=== PATIENT | male | born 1965 | race Caucasian/White ===

== ENCOUNTER 2020-11-04 05:39 | Outpatient (CLI) | payer BC ==
[~2020-11-04] VITALS: Ht 177.8 cm; Wt 123.3 kg
[~2020-11-04 05:39] MED LIST: ACET325T49; AMLO10TA4; GUAI-509; HCT25T; LEVO750T6; LISI20TA; LSNP10T; MTC10T; VALS80TA; ZEGERID; ZEGRID
[2020-11-04] MEDS ORDERED: METF500S5 PO (13:12)
[2020-11-04] MEDS ORDERED: ATOR10TA66 PO (13:12)
[2020-11-04] MEDS ORDERED: TRAZ150T72 PO (13:12)
[2020-11-04] MEDS ORDERED: LISI20TA26 PO (13:12)
== END 2020-11-04 13:56 | disposition home or self-care (01) ==
LOC: PREOP 05:39
PROVIDERS: ATTEND Surgery
DX: Z01.818 Encounter for other preprocedural examination (principal)

== ENCOUNTER → 2020-11-11 | Day surgery (SDC) | payer BC ==
[~2020-11-11] VITALS: Ht 177 cm; Wt 123.0 kg
[~2020-11-11] MED LIST changes: +ATOR10TA66 PO; +LACTATED RINGERS 1,000 ML IV STA; +LISI20TA26 PO; +METF500S5 PO; +MIDAZOLAM 2 MG/2 ML (VERSED) VIAL ONE; +PROPOFOL INJECTION 50 ML IV ONE; +TRAZ150T72 PO
[2020-11-11 11:45] VITALS: BP 142/83
[2020-11-11 13:00] VITALS: BP 119/57
--- NOTE | 2020-11-11 13:00 | Progress Note-Post Operative ---
Post-Operative Progess Note Surgeon (s)/Painter Shipyard (s) Surgeon PADMINI WIN DO Pain[employer] Shipyard: na Pre-Operative Diagnosis screening colonoscopy Post-Operative Diagnosis colon polyps Procedure & Operative Findings Date of Procedure 11/11/20 Procedure Performed/Findings colonoscopy c snare polypectomy x 2 and fulguration of polyps x 2 Anesthesia Type per spray painting machine operator Estimated Blood Loss Estimated blood loss (mL): none Specimens/Packing Specimens Removed colon polyps PADMINI WIN DO Nov 11, 2020 13:00
--- NOTE | 2020-11-11 13:02 | Discharge Inst-Simple/Standard ---
Discharge Inst-Standard Patient Instructions/Follow Up Plan of Care/Instructions/FU: 2 weeks Nusrat Activity as Tolerated: Yes Discharge Diet: Regular Diet PADMINI WIN DO Nov 11, 2020 13:02
[2020-11-11 13:05] VITALS: BP 96/52
[2020-11-11 13:09] VITALS: BP 108/57
[2020-11-11 13:10] VITALS: BP_SYST 103; BP_SYST 125; BP_DIAS 59; BP_DIAS 92
[2020-11-11 13:35] VITALS: BP 125/92
--- NOTE | 2020-11-11 14:17 | Anesthesia-General Post-Op ---
MAC Patient Condition Mental Status/LOC: Same as Preop Cardiovascular: Satisfactory Nausea/Vomiting: Absent Respiratory: Satisfactory Pain: Controlled Complications: Absent Post Op Complications Complications None Follow Up Care/Instructions Patient Instructions None needed. Anesthesiology Discharge Order Discharge Order Patient is doing well, no complaints, stable vital signs, no apparent adverse anesthesia problems. No complications reported per nursing. GEMMA PINA [employer] Nov 11, 2020 14:17
--- NOTE | 2020-11-11 15:49 | OPERATIVE REPORT ---
DATE OF SERVICE: 11/11/2020 PREOPERATIVE DIAGNOSIS: Screening colonoscopy. POSTOPERATIVE DIAGNOSIS: Colon polyps. PROCEDURE: Colonoscopy with snare polypectomy x2 and fulguration of polyps x2. SURGEON: Padmini Silverio DO ANESTHESIA: Per VALUE ENGINEER. ESTIMATED BLOOD LOSS: None. COMPLICATIONS: None. INDICATIONS: The patient is a 55-year-old male needing screening colonoscopy. He understands risks and benefits of procedure and wished to proceed with procedure. Consent was signed in the chart. DESCRIPTION OF PROCEDURE: The patient was taken to the endoscopy suite, placed in left lateral recumbent position. Timeout was performed. Digital rectal exam was performed. No palpable polyps, masses or ulcerations. Scope was inserted in the rectum, advanced all the way to cecum with minimal difficulty. Very tiny polyp in the cecum, which was visualized. The biopsy forceps were advanced, but unable to be advanced through the channel. Therefore, snare was able to be advanced all the way through the channel of the scope. A small polyp was fulgurated. Scope was then slowly retracted back into the ascending colon, a small polyp was present, which snare polypectomy was performed. This was obtained for specimen. There was a second polyp right next to it, which this polyp right next to the ascending colon polyp was fulgurated. Scope was then continuously slowly retracted back through the remainder of the ascending, and transverse colon without any polyps, masses or ulcerations. In the descending colon, another polyp was present, was small, which snare polypectomy was performed. This was obtained for specimen. Scope was then continuously slowly retracted back. No other polyps, masses or ulcerations within the remainder of the descending, sigmoid and rectum. Scope was retroflexed noting no other pathology in the rectum. Scope was returned to its normal position, slowly withdrawn until completely removed. The patient tolerated procedure well without any complications, taken to recovery room in stable condition. RECOMMENDATIONS: The patient will need repeat colonoscopy in 3 years. Any issues before that be seen at that time. Job ID: [id number] DocumentID: [id number] Dictated Date: 11/11/2020 13:04:39 Video Production Coordinator Date: 11/11/2020 15:47:43 Dictated By: PADMINI SILVERIO DO
== END ==
LOC: ENDO 11:31
PROVIDERS: ATTEND Surgery
DX: Z12.11 Encounter for screening for malignant neoplasm of colon (principal); D12.2 Benign neoplasm of ascending colon; D12.4 Benign neoplasm of descending colon; E11.9 Type 2 diabetes mellitus without complications; I10 Essential (primary) hypertension; E66.01 Morbid (severe) obesity due to excess calories; G47.33 Obstructive sleep apnea (adult) (pediatric); Z87.442 Personal history of urinary calculi; Z79.2 Long term (current) use of antibiotics; Z79.899 Other long term (current) drug therapy; Z79.84 Long term (current) use of oral hypoglycemic drugs; Z68.41 Body mass index [BMI] 40.0-44.9, adult
CPT/HCPCS: 88305

== ENCOUNTER 2021-08-31 08:26 | Outpatient (CLI) | payer BC ==
[~2021-08-31] VITALS: Ht 175.3 cm; Wt 123.6 kg
[~2021-08-31 08:26] MED LIST changes: -LACTATED RINGERS 1,000 ML IV STA; -MIDAZOLAM 2 MG/2 ML (VERSED) VIAL ONE; -PROPOFOL INJECTION 50 ML IV ONE
== END 2021-08-31 11:38 ==
LOC: PREOP 08:26
PROVIDERS: ATTEND Otolaryngology Otolaryngology/Facial Plastic Surgery
DX: Z01.818 Encounter for other preprocedural examination (principal)

== ENCOUNTER 2021-09-03 06:59 | Day surgery (SDC) | payer BC ==
[2021-09-03] VITALS (9 sets, daily range): BP systolic 101–139; BP diastolic 57–91
[~2021-09-03] VITALS: Ht 175 cm; Wt 123.6 kg
[2021-09-03] MEDS: LACTATED RINGERS 1,000 ML IV PRN ×3 (07:52→09:45)
[2021-09-03 07:54] LABS: BASOPHILS % (AUTO) 1 % (0-10); EOSINOPHILS # (AUTO) 0.4 10^3/uL (0.0-0.3); EOSINOPHILS % (AUTO) 5 % (0-10); HEMATOCRIT 43 % (40-54); HEMOGLOBIN 14.1 g/dL (13.3-17.7); LYMPHOCYTES # (AUTO) 1.6 10^3/uL (1.0-4.0); LYMPHOCYTES % (AUTO) 22 % (12-44); MEAN CORPUSCULAR HEMOGLOBIN 30 pg (25-34); MEAN CORPUSCULAR HGB CONC 33 g/dL (32-36); MEAN CORPUSCULAR VOLUME 90 fL (80-99); MEAN PLATELET VOLUME 9.7 fL (9.0-12.2); MONOCYTES # (AUTO) 0.9 10^3/uL (0.0-1.0); MONOCYTES % (AUTO) 12 % (0-12); NEUTROPHILS # (AUTO) 4.4 10^3/uL (1.8-7.8); NEUTROPHILS % (AUTO) 60 % (42-75); PLATELET COUNT 270 10^3/uL (130-400); WHITE BLOOD COUNT 7.4 10^3/uL (4.3-11.0)
[2021-09-03 08:07] LABS: POTASSIUM 4.1 MMOL/L (3.6-5.0)
[2021-09-03 08:08] LABS: CALCIUM 8.8 MG/DL (8.5-10.1)
[2021-09-03 08:12] LABS: CREATININE SERUM 0.7 MG/DL (0.60-1.30)
[2021-09-03] MEDS ORDERED: LIDOCAINE/EPI 2% 1:100,00 (XYLOCAINE) 20 ML VIAL ONE (08:51)
[2021-09-03] MEDS ORDERED: MIDAZOLAM 2 MG/2 ML (VERSED) VIAL ONE (09:03)
[2021-09-03] MEDS ORDERED: proPOfol 200 MG/20 ML (DIPRIVAN) VIAL IV ONE (09:03)
[2021-09-03] MEDS ORDERED: fentaNYL INJ 100 MCG/2 ML AMP ONE (09:03)
[2021-09-03] MEDS ORDERED: ONDANSETRON 4 MG/2 ML (SDV) Z0FRAN ONE (09:03)
[2021-09-03] MEDS ORDERED: MUPIROCIN 2% OINT 22 GM (BACTROBAN) TUBE ONE (09:03)
[2021-09-03] MEDS ORDERED: LIDOCAINE PF 2% 5 ML (XYLOCAINE) VIAL ONE (09:03)
--- NOTE | 2021-09-03 09:44 | Progress Note-Post Operative ---
Post-Operative Progess Note Surgeon (s)/Grounds Restoration Specialist (s) Surgeon LARA HARDING MD Grounds Restoration Specialist n/a Pre-Operative Diagnosis Left Nasal Alar Lesion Post-Operative Diagnosis same Post-Op Procedure Note Date of Procedure: Sep 03, 2021 Name of Procedure Performed: Excision of Left Nasal Alar Lesion with INtermediate Repair Description & Findings Description and Findings: n/a Anesthesia Type lma Estimated Blood Loss minimal Packing none. Specimen(s) collected/removed left nasal alar mass LARA HARDING MD Sep 03, 2021 09:44
--- NOTE | 2021-09-03 09:44 | Progress Note-Pre Operative ---
Pre-Operative Progress Note H&P Reviewed The H&P was reviewed, patient examined and no changes noted. Date Seen by Provider: Sep 03, 2021 Time Seen by Provider: 09:00 Date H&P Reviewed: Sep 03, 2021 Time H&P Reviewed: 09:00 Pre-Operative Diagnosis: Left Nasal Alar Lesion LARA HARDING MD Sep 03, 2021 09:44
[2021-09-03] MEDS ORDERED: HYDROcodone/APAP 5 MG/325 MG (LORTAB) TAB PO PRN (09:45)
[2021-09-03] MEDS ORDERED: ACETAMINOPHEN 325 MG TABLET PO PRN (09:45)
--- NOTE | 2021-09-03 09:46 | Anesthesia-General Post-Op ---
General Patient Condition Mental Status/LOC: Same as Preop Cardiovascular: Satisfactory Nausea/Vomiting: Absent Respiratory: Satisfactory Pain: Controlled Complications: Absent Post Op Complications Complications None Follow Up Care/Instructions Patient Instructions None needed. Anesthesia/Patient Condition Patient Condition Patient is doing well, no complaints, stable vital signs, no apparent adverse anesthesia problems. No complications reported per nursing. GILDA FARIA CRNA Sep 03, 2021 09:46
[2021-09-03] MEDS ORDERED: MEPERIDINE (DEMEROL) INJ 50 MG/ML IVP ONE (10:00)
[2021-09-03] MEDS ORDERED: morphine INJ 10 MG/ML 1ML (SYR OR VIAL) IVP ONE (10:00)
[2021-09-03] MEDS ORDERED: ONDANSETRON 4 MG/2 ML (SDV) Z0FRAN IVP PRN (10:00)
[2021-09-03] MEDS ORDERED: ACHD5005 PO (10:23)
[2021-09-03] MEDS ORDERED: DOXY-311 PO (10:23)
== END 2021-09-03 11:25 | disposition home or self-care (01) ==
LOC: SDC 06:59
PROVIDERS: ATTEND Otolaryngology Otolaryngology/Facial Plastic Surgery
DX: D18.01 Hemangioma of skin and subcutaneous tissue (principal); J34.0 Abscess, furuncle and carbuncle of nose
CPT/HCPCS: 36415; 80048; 85025; 87081

== ENCOUNTER 2021-10-09 06:30 | Outpatient (CLI) | payer BC ==
[~2021-10-09 06:30] MED LIST changes: +ACHD5005 PO; +DOXY-311 PO
== END 2021-10-12 16:16 ==
LOC: PREOP 06:30
PROVIDERS: ATTEND Otolaryngology Otolaryngology/Facial Plastic Surgery
DX: Z01.818 Encounter for other preprocedural examination (principal); L98.0 Pyogenic granuloma

== ENCOUNTER 2021-10-16 08:56 | Day surgery (SDC) | payer BC ==
[~2021-10-16] VITALS: Ht 177.8 cm; Wt 123.6 kg
[2021-10-16] VITALS (11 sets, daily range): BP systolic 119–145; BP diastolic 71–93
[2021-10-16] MEDS ORDERED: MUPIROCIN 2% OINT 22 GM (BACTROBAN) TUBE ONE (09:23)
[2021-10-16] MEDS ORDERED: BSS 15 ML ONE (09:23)
[2021-10-16] MEDS ORDERED: proPOfol 200 MG/20 ML (DIPRIVAN) VIAL IV ONE ×2 (09:28→10:52)
[2021-10-16] MEDS ORDERED: ONDANSETRON 4 MG/2 ML (SDV) Z0FRAN ONE (09:28)
[2021-10-16] MEDS ORDERED: LIDOCAINE PF 2% 5 ML (XYLOCAINE) VIAL ONE (09:28)
[2021-10-16] MEDS ORDERED: LIDOCAINE/EPI 2% 1:200,00 (XYLOCAINE) 20 ML VIAL ONE (09:29)
[2021-10-16] MEDS: LACTATED RINGERS 1,000 ML IV PRN ×2 (09:30→10:30)
[2021-10-16] MEDS ORDERED: fentaNYL INJ 100 MCG/2 ML AMP ONE (09:30)
[2021-10-16] MEDS ORDERED: MIDAZOLAM 2 MG/2 ML (VERSED) VIAL ONE (09:56)
--- NOTE | 2021-10-16 09:56 | Progress Note-Pre Operative ---
Pre-Operative Progress Note H&P Reviewed The H&P was reviewed, patient examined and no changes noted. Date Seen by Provider: October 16, 2021 Time Seen by Provider: : Date H&P Reviewed: October 16, 2021 Time H&P Reviewed: : Pre-Operative Diagnosis: Recurent Pyogenic Granuloma left nasal AlaLARA Baeza MD October 16, 2021 09:56
--- NOTE | 2021-10-16 10:28 | Progress Note-Post Operative ---
Post-Operative Progess Note Surgeon (s)/Three Dimensional Art Instructor (s) Surgeon LARA HARDING MD Three Dimensional Art Instructor n/a Pre-Operative Diagnosis Recurent Pyogenic Granuloma left nasal Alae Post-Operative Diagnosis same Post-Op Procedure Note Date of Procedure: October 16, 2021 Name of Procedure Performed: Re-excsion of Left Nasal Alae Lesion with Complex Repair Description & Findings Description and Findings: n/a Anesthesia Type lma Estimated Blood Loss minimal Packing none. Specimen(s) collected/removed left nasal zahida lesion for frozen section LARA HARDING MD October 16, 2021 10:28
[2021-10-16] MEDS ORDERED: ACETAMINOPHEN 325 MG TABLET PO PRN (10:30)
[2021-10-16] MEDS ORDERED: HYDROcodone/APAP 5 MG/325 MG (LORTAB) TAB PO PRN (10:30)
[2021-10-16] MEDS ORDERED: SEVOFLURANE (ULTANE) 15 ML INHAL SOLN ONE (10:53)
[2021-10-16] MEDS ORDERED: morphine INJ 10 MG/ML 1ML (SYR OR VIAL) ONE (11:04)
[2021-10-16] MEDS ORDERED: morphine INJ 10 MG/ML 1ML (SYR OR VIAL) IVP STA (11:09)
--- NOTE | 2021-10-16 11:45 | Anesthesia-General Post-Op ---
General Patient Condition Mental Status/LOC: Same as Preop Cardiovascular: Satisfactory Nausea/Vomiting: Absent Respiratory: Satisfactory Pain: Controlled Complications: Absent Post Op Complications Complications None Follow Up Care/Instructions Patient Instructions None needed. Anesthesia/Patient Condition Patient Condition Patient is doing well, no complaints, stable vital signs, no apparent adverse anesthesia problems. No complications reported per nursing. BRIAN VILLARREAL CRNA October 16, 2021 11:45
[2021-10-16] MEDS ORDERED: DOXY100T2 PO (12:08)
[2021-10-16] MEDS ORDERED: ACHD5005 PO (12:08)
== END 2021-10-16 12:43 ==
LOC: SDC 08:56
PROVIDERS: ATTEND Otolaryngology Otolaryngology/Facial Plastic Surgery
DX: L98.0 Pyogenic granuloma (principal); J34.0 Abscess, furuncle and carbuncle of nose; Z79.899 Other long term (current) drug therapy
CPT/HCPCS: 82947; 87081